=== PATIENT | female | born 1995 | race Caucasian/White ===

== ENCOUNTER → 2016-09-09 | Outpatient (REF) ==
[~2016-09-09] MED LIST: LEXAPRO20 MG PO; NATURE'S BLE1000 MCG PO; XANAX XR2 M1 PO; ZOVIA 1/35E 351 TAB PO
== END ==
LOC: WSOH 14:17
DX: Z02.89 Encounter for other administrative examinations (principal)

== ENCOUNTER → 2016-09-30 | Outpatient (REF) | LOC: WSOH 08:51 | DX: Z02.89 Encounter for other administrative examinations (principal) ==

== ENCOUNTER 2019-03-17 19:48 | Emergency (ER) | payer BC ==
[~2019-03-17] VITALS: Ht 170.2 cm; Wt 54.5 kg
[2019-03-17 19:56] VITALS: BP 113/75; TEMP 98.1
[2019-03-17] MEDS ORDERED: KLONOPIN2 MG PO (20:06)
[2019-03-17] MEDS ORDERED: ALDACTONE50 MG PO (20:06)
[2019-03-17] MEDS ORDERED: RESTASIS MULTI5.5 ML OP (20:06)
[2019-03-17] MEDS ORDERED: BUSPAR DIVIDOSE15 MG PO (20:07)
[2019-03-17] MEDS ORDERED: JUNEL FE 1/20 21 TAB PO (20:08)
[2019-03-17] MEDS ORDERED: AMOXICILLIN 8751 TAB PO (20:22)
[2019-03-17 21:01] VITALS: PULSE 101
== END 2019-03-17 21:00 | disposition home or self-care (01) ==
LOC: COL.ER 19:48
DX: S70.371A Other superficial bite of right thigh, initial encounter (principal); W54.0XXA Bitten by dog, initial encounter; Y92.009 Unspecified place in unspecified non-institutional (private) residence as the place of occurrence of the external cause